=== PATIENT | female | born 1980 | race Two or more races ===

== ENCOUNTER 2021-01-19 20:32 | Emergency (ER) | payer MEDICAID ==
[~2021-01-19] VITALS: Ht 162.6 cm; Wt 69.0 kg
[2021-01-19] MEDS ORDERED: KETOROLAC 60MG/2ML VIAL IM STA (22:34)
[2021-01-19] MEDS ORDERED: METOCLOPRAMIDE HCL 10MG/2ML VIAL IM ONE (22:45)
[2021-01-19 23:41] LABS: CLARITY URINE CLEAR (CLEAR); COLOR URINE YELLOW (YELLOW); KETONES URINE NEGATIVE (NEGATIVE); LEUKOCYTE ESTERASE URINE NEGATIVE (NEGATIVE); NITRITE URINE NEGATIVE (NEGATIVE); OCCULT BLOOD URINE TRACE (NEGATIVE); PH URINE 5.5 (4.5-8.0); PROTEIN URINE NEGATIVE (NEGATIVE); SPECIFIC GRAVITY URINE 1.011 (1.005-1.030); UROBILINOGEN URINE 0.2 E.U./dL (0.2-1.0)
[2021-01-20] MEDS ORDERED: NAPR-681 PO (00:39)
[2021-01-20 00:40] VITALS: BP 129/82
== END 2021-01-20 00:45 | disposition home or self-care (01) ==
LOC: ER 20:32
DX: R51.9 Headache, unspecified (principal); R11.0 Nausea; H92.03 Otalgia, bilateral
CPT/HCPCS: 81003; 81025; 87070; 87430; 96372; 99284; J1885; J2765

== ENCOUNTER 2021-12-18 22:41 | Emergency (ER) | payer MEDICAID ==
[~2021-12-18] VITALS: Ht 162.6 cm; Wt 66.0 kg
[~2021-12-18 22:41] MED LIST: NAPR-681 PO
[2021-12-19] MEDS ORDERED: TETRACAINE 0.5% OPHTH DROPS 4ML LEFTEYE ONE (00:45)
[2021-12-19] MEDS ORDERED: FLUORESCEIN SODIUM 1MG/STRIP LEFTEYE ONE (00:45)
[2021-12-19] MEDS ORDERED: ERYT1OIN6 LEFTEYE (00:47)
[2021-12-19] MEDS ORDERED: PRED5DRO22 LEFTEYE (00:47)
[2021-12-19] MEDS ORDERED: TOPUD PO (00:47)
[2021-12-19] MEDS ORDERED: ACETAMINOPHEN 325MG TABLET PO ONE (01:00)
[2021-12-19] MEDS ORDERED: IBUPROFEN 400MG TABLET PO ONE (01:00)
[2021-12-19 01:15] VITALS: BP 138/78
== END 2021-12-19 01:59 | disposition home or self-care (01) ==
LOC: ER 22:41
DX: H53.8 Other visual disturbances (principal); T26.62XA Corrosion of cornea and conjunctival sac, left eye, initial encounter; T26.61XA Corrosion of cornea and conjunctival sac, right eye, initial encounter; Y93.89 Activity, other specified; Y92.89 Other specified places as the place of occurrence of the external cause; Y99.8 Other external cause status; Z79.899 Other long term (current) drug therapy
CPT/HCPCS: 99283